=== PATIENT | male | born 1985 | race American Indian/Alaskan Native ===

== ENCOUNTER 2020-05-18 13:03 | Emergency (ER) | payer SELFPAY ==
[2020-05-18 13:41] VITALS: BP 136/87
[2020-05-18] MEDS ORDERED: ACETAMINOPHEN 325 MG TAB ONE (14:48)
--- NOTE | 2020-05-18 15:28 | XRay Report ---
CHEST 2 VIEWS INDICATION / CLINICAL INFORMATION: chest pain. COMPARISON: None available. FINDINGS: SUPPORT DEVICES: None. HEART / MEDIASTINUM: No significant abnormality. LUNGS / PLEURA: No significant pulmonary or pleural abnormality. No pneumothorax. ADDITIONAL FINDINGS: No significant additional findings. IMPRESSION: 1. No acute findings. Signer Name: Wolf Melton MD Signed: 05/18/2020 3:24 PM Workstation Name: [id number]
--- NOTE | 2020-05-18 16:05 | Emergency Department Report ---
ED General Adult HPI - General Chief complaint: Dyspnea/Respdistress Stated complaint: SOB Time Seen by Provider: 05/18/20 15:55 Source: patient, police Mode of arrival: Wheelchair Limitations: No Limitations - History of Present Illness Initial comments: 35-year-old F [place] male presents emergency department complaining of a 1 to near 2-week history of various episodes of chest pain or shortness of breath associated with cough lasting for a matter of minutes 30 seconds. While he was involved in a issue today which involve law enforcement I was reported that once he was informed of him going to be arrested to go to prison he began to feel flush began to have feels his his heart began to race but the morrison were closing in and began to have chest pain and some shortness of breath. Ports no hemoptysis no hematemesis no hematochezia. Reports known no vomiting. Reports no rashes. Reports no abdomen abdominal pain or flank pain. He does admit to smoking marijuana every day multiple times per day and last smoked 9 AM. Severity scale (0 -10): 4 - Related Data Allergies Allergy/AdvReac Type Severity Reaction Status Date / Time No Known Allergies Allergy Unverified 05/18/20 14:51 ED Review of Systems ROS: Stated complaint: SOB Other details as noted in HPI Comment: All other systems reviewed and negative ED Past Medical Hx - Past Medical History Previous Medical History?: Yes Hx Asthma: Yes - Surgical History Past Surgical History?: No - Social History Smoking Status: Never Smoker Substance Use Type: Alcohol, Marijuana ED Physical Exam - General Limitations: No Limitations General appearance: alert, in no apparent distress - Head Head exam: Present: atraumatic, normocephalic - Eye Eye exam: Present: normal appearance, PERRL - ENT ENT exam: Present: normal exam, mucous membranes moist - Neck Neck exam: Present: normal inspection - Respiratory Respiratory exam: Present: normal lung sounds bilaterally. Absent: respiratory distress - Cardiovascular Cardiovascular Exam: Present: regular rate, normal rhythm. Absent: systolic murmur, diastolic murmur, rubs, gallop - GI/Abdominal GI/Abdominal exam: Present: soft, normal bowel sounds - Rectal Rectal exam: Present: deferred - Extremities Exam Extremities exam: Present: normal inspection - Back Exam Back exam: Present: normal inspection - Neurological Exam Neurological exam: Present: alert, oriented X3 - Psychiatric Psychiatric exam: Present: normal affect, normal mood - Skin Skin exam: Present: warm, dry, intact, normal color. Absent: rash ED Course Vital Signs 05/18/20 13:36 Pulse Rate 74 Respiratory 16 Rate Blood Pressure 136/87 [Right] O2 Sat by Pulse 100 Oximetry ED Medical Decision Making - Radiology Data Radiology results: report reviewed Referring Physician:DEION CANALESPatient Name:ELINOR MCRAEPatient ID:[id number] of :[id number]:MaleAccession:[id number] Date:[id number] Status:Finalized Findings [facility] [address] [place] [address] XRay Report Signed Patient: ELINOR MCRAE MR#: [id number] : 1985 Acct:[id number] Age/Sex: 35 / M ADM Date: 05/18/20 Loc: ED Attending Dr: Ordering Physician: CAROLE LOMBARDI Date of Service: 05/18/20 Procedure(s): XR chest routine 2V Accession Number(s): [id number] cc: CAROLE LOMBARDI Fluoro Time In Minutes: CHEST 2 VIEWS INDICATION / CLINICAL INFORMATION: chest pain. COMPARISON: None available. FINDINGS: SUPPORT DEVICES: None. HEART / MEDIASTINUM: No significant abnormality. LUNGS / PLEURA: No significant pulmonary or pleural abnormality. No pneumothorax. ADDITIONAL FINDINGS: No significant additional findings. IMPRESSION: 1. No acute findings. Signer Name: Alfredo Melton MD Signed: 05/18/2020 3:24 PM Workstation Name: [id number] Transcribed By: RH Dictated By: ALFREDO MELTON III Electronically Authenticated By: ALFREDO MELTON III Signed Date/Time: 05/18/20 1524 DD/ 1523 TD/TT: - Medical Decision Making This patient presents with acute cough, most consistent with bronchitis. Differential diagnosis includes asthma, bronchitis, hyperreactive airway disease, viral syndrome presentation not consistent with acute bacterial pneumonia, influenza, asthma, transient airway hyperresponsiveness. Presentation not consistent with chronic causes of cough (including GERD, asthma, postnasal discharge, medication side effect, CHF, lung cancer or mass). Plan: supportive care, reassess Critical care attestation.: If time is entered above; I have spent that time in minutes in the direct care of this critically ill patient, excluding procedure time. ED Disposition Clinical Impression: Cough, Bronchitis, Anxiety Disposition: DC-01 TO HOME OR SELFCARE Is pt being admited?: No Does the pt Need Aspirin: No Condition: Good Instructions: Cool Mist Vaporizer, Upper Respiratory Infection, Adult, How to Use a Metered Dose Inhaler, Managing Anxiety, Adult, Chronic Bronchitis (ED) Referrals: [facility] [Provider Group] - 3-5 Days
== END 2020-05-18 16:05 | disposition home or self-care (01) ==
LOC: ED 13:03
DX: J20.9 Acute bronchitis, unspecified (principal); F41.9 Anxiety disorder, unspecified
CPT/HCPCS: 71046; 93005; 99283